=== PATIENT | male | born 1965 | race Hispanic/Latino ===

== ENCOUNTER → 2021-10-09 | Outpatient (CLI) | payer BC | LOC: DX 10:45 | PROVIDERS: ATTEND Family Medicine | DX: R13.10 Dysphagia, unspecified (principal); E11.9 Type 2 diabetes mellitus without complications; K21.9 Gastro-esophageal reflux disease without esophagitis; K44.9 Diaphragmatic hernia without obstruction or gangrene | CPT/HCPCS: 0223U; 36415; 74230; 92526; 92611 ==